=== PATIENT | female | born 1980 | race Two or more races ===

== ENCOUNTER 2023-08-14 13:00 | Observation (INO) | payer OTHER ==
[2023-08-14] MEDS ORDERED: FAMOTIDINE 20 MG/50 ML IVPB 20 MG/50 ML MG IVPB ONE (14:50)
[2023-08-14] MEDS ORDERED: MAG HYDROX/AL HYDROX/SIMETH 30 ML UNIT-DOSE CUP ONE (14:50)
[2023-08-14] MEDS ORDERED: ONDANSETRON 4 MG/2 ML VIAL ONE (14:50)
[2023-08-14] MEDS: FAMOTIDINE 20 MG/50 ML IVPB 20 MG/50 ML MG IVPB ONE (14:53)
[2023-08-14] MEDS: ONDANSETRON 4 MG/2 ML VIAL IVPUSH ONE (14:53)
[2023-08-14] MEDS: MAG HYDROX/AL HYDROX/SIMETH 30 ML UNIT-DOSE CUP PO ONE (14:53)
[2023-08-14 14:55] LABS: BASO % 0.9 % (0-2.0); EOS % 1.7 % (0-4.5); HEMATOCRIT 27.5 % (32.4-45.2); HEMOGLOBIN 8.3 GM/dL (10.7-15.3); LYMPH % 22.3 % (8-40); MCH 18.6 pg (25.7-33.7); MCHC 30.1 g/dl (32.0-36.0); MEAN CELL VOLUME 61.6 fl (80-96); MEAN PLT VOLUME 8.1 fl (7.5-11.1); MONO % 7.8 % (3.8-10.2); NEUT % 67.3 % (42.8-82.8); PLATELET COUNT 448 10^3/uL (134-434); RBC 4.46 M/mm3 (3.60-5.2); RDW 21.7 % (11.6-15.6); WHITE BLOOD COUNT 9.4 K/mm3 (4.0-10.0)
[2023-08-14 15:20] LABS: BLOOD UREA NITROGEN 22.8 mg/dL (7-18)
[2023-08-14 15:22] LABS: ALBUMIN 3.4 g/dl (3.4-5.0); CALCIUM 9.3 mg/dL (8.5-10.1)
[2023-08-14 15:24] LABS: CREATININE 2.1 mg/dL (0.55-1.3)
[2023-08-14 15:27] LABS: BILIRUBIN,TOTAL 0.3 mg/dL (0.2-1); TOT PROT 8.4 g/dl (6.4-8.2)
[2023-08-14 17:00] LABS: ANISOCYTOSIS 2+; MACROCYTOSIS 1+; OVALOCYTE 1+
[2023-08-14] MEDS ORDERED: MAG HYDROX/AL HYDROX/SIMETH 30 ML UNIT-DOSE CUP PO PRN (18:17)
[2023-08-14] MEDS: LACTATED RINGERS SOLUTION 1,000 ML/1,000 ML INFUS.BAG IV SCH (18:49)
[2023-08-14] MEDS: LABETALOL HCL 200 MG TABLET (FP) PO SCH (23:03)
[2023-08-14] MEDS: ATORVASTATIN CA 40 MG TABLET (FP) PO SCH (23:04)
[2023-08-14] MEDS: HEPARIN NA (PORCINE) 5,000 UNITS/ML 1ML VIAL SQ SCH (23:04)
[2023-08-14] MEDS: MIRTAZAPINE 15 MG TABLET (FP) PO SCH (23:04)
[2023-08-14 23:38] VITALS: BMI 39.8
[2023-08-15] MEDS: AMOXICILLIN 500 MG CAPSULE (FP) PO SCH (01:43)
[2023-08-15] MEDS: INSULIN ASPART SLIDING SCALE (NOVOLOG) 1 VIAL SQ SCH (06:23)
[2023-08-15 07:45] LABS: BASO % 1.2 % (0-2.0); EOS % 1.9 % (0-4.5); HEMATOCRIT 25.9 % (32.4-45.2); HEMOGLOBIN 7.7 GM/dL (10.7-15.3); LYMPH % 29.8 % (8-40); MCHC 29.9 g/dl (32.0-36.0); MEAN CELL VOLUME 62.7 fl (80-96); MEAN PLT VOLUME 8.2 fl (7.5-11.1); MONO % 7.7 % (3.8-10.2); NEUT % 59.4 % (42.8-82.8); PLATELET COUNT 408 10^3/uL (134-434); RBC 4.13 M/mm3 (3.60-5.2); RDW 21.3 % (11.6-15.6); WHITE BLOOD COUNT 9.6 K/mm3 (4.0-10.0)
[2023-08-15 07:47] LABS: MCH 18.8 pg (25.7-33.7)
[2023-08-15 08:06] LABS: POTASSIUM 4.3 mmol/L (3.5-5.1)
[2023-08-15 08:09] LABS: BLOOD UREA NITROGEN 23.6 mg/dL (7-18); CALCIUM 9.2 mg/dL (8.5-10.1)
[2023-08-15 08:13] LABS: CREATININE 1.9 mg/dL (0.55-1.3)
[2023-08-15] MEDS: FERROUS GLUCONATE 324 MG TAB (FP) PO SCH (10:32)
[2023-08-15] MEDS: FAMOTIDINE 20 MG TABLET PO SCH (10:32)
[2023-08-15] MEDS: DOCUSATE SODIUM 100 MG CAPSULE (FP) PO SCH (10:32)
[2023-08-15] MEDS: amLODIPine BESYLATE 10 MG TABLET (FP) PO SCH (10:32)
[2023-08-15] MEDS: DEXTROSE 5%-0.45% SALINE 1,000 ML IV SCH (11:26)
[2023-08-15 13:43] LABS: PH,URINE 5.5 (5.0-8.0); URINE APPEARANCE Clear; URINE BILIRUBIN Negative (NEGATIVE); URINE COLOR Yellow; URINE GLUCOSE (UA) Negative (NEGATIVE); URINE KETONE Negative (NEGATIVE); URINE LEUK ESTERASE Negative (NEGATIVE); URINE NITRITE Negative (NEGATIVE); URINE PROTEIN Negative (NEGATIVE); URINE UROBILINOGEN 0.2 mg/dL (0.2-1.0)
[2023-08-15 13:49] LABS: EPI CELLS 43 /uL (0-25.1); HYALINE CASTS 0 /uL (0-3.1); URINE BACTERIA 299 /uL (0-1359); URINE RBC 17 /uL (0-23.9); URINE WBC 9 /uL (0-25.8)
[2023-08-15] MEDS: SODIUM CHLORIDE 0.45% 1,000 ML IV SCH (14:49)
[2023-08-16 08:20] LABS: EOS % 2.6 % (0-4.5); HEMOGLOBIN 7.8 GM/dL (10.7-15.3); MCHC 29.8 g/dl (32.0-36.0); MEAN CELL VOLUME 62.8 fl (80-96); MEAN PLT VOLUME 8.6 fl (7.5-11.1); MONO % 8.8 % (3.8-10.2); NEUT % 58.6 % (42.8-82.8); PLATELET COUNT 410 10^3/uL (134-434); RBC 4.14 M/mm3 (3.60-5.2); RDW 21.8 % (11.6-15.6)
[2023-08-16 08:26] LABS: MCH 18.7 pg (25.7-33.7)
[2023-08-16 08:29] LABS: POTASSIUM 3.8 mmol/L (3.5-5.1)
[2023-08-16 08:39] LABS: BLOOD UREA NITROGEN 21.6 mg/dL (7-18); CALCIUM 8.7 mg/dL (8.5-10.1)
[2023-08-16 08:41] LABS: CREATININE 1.7 mg/dL (0.55-1.3)
[2023-08-16 08:43] LABS: TOT PROT 7.8 g/dl (6.4-8.2)
[2023-08-16 09:11] LABS: BILIRUBIN,TOTAL 0.3 mg/dL (0.2-1)
[2023-08-17] MEDS ORDERED: INSULIN ASPART SLIDING SCALE (NOVOLOG) 1 VIAL SQ ONE (07:25)
[2023-08-18 06:39] LABS: EOS % 2.7 % (0-4.5); HEMATOCRIT 26.1 % (32.4-45.2); HEMOGLOBIN 7.9 GM/dL (10.7-15.3); LYMPH % 27.7 % (8-40); MCHC 30.4 g/dl (32.0-36.0); MEAN CELL VOLUME 62.8 fl (80-96); MEAN PLT VOLUME 7.9 fl (7.5-11.1); MONO % 8.2 % (3.8-10.2); NEUT % 60.4 % (42.8-82.8); PLATELET COUNT 430 10^3/uL (134-434); RBC 4.16 M/mm3 (3.60-5.2); RDW 22.2 % (11.6-15.6); WHITE BLOOD COUNT 8.7 K/mm3 (4.0-10.0)
[2023-08-18 06:57] LABS: MCH 19.1 pg (25.7-33.7)
[2023-08-18 06:59] VITALS: RESP 18
[2023-08-18 07:29] LABS: BLOOD UREA NITROGEN 18.4 mg/dL (7-18); CALCIUM 8.5 mg/dL (8.5-10.1)
[2023-08-18 07:30] LABS: ALBUMIN 3.2 g/dl (3.4-5.0)
[2023-08-18 07:32] LABS: CREATININE 1.7 mg/dL (0.55-1.3)
[2023-08-18 07:34] LABS: BILIRUBIN,TOTAL 0.4 mg/dL (0.2-1)
[2023-08-18 09:22] LABS: ANISOCYTOSIS 2+; MACROCYTOSIS 0
[2023-08-18 09:25] VITALS: PULSE 81; TEMP 98.2
[2023-08-18 14:36] VITALS: BP 150/90
== END 2023-08-18 15:14 | disposition home or self-care (01) ==
LOC: JER 13:00 → INTOOBSV 17:50 → UNDOADMOB 17:50 → JERBED 17:50 → J7W 21:55
PROVIDERS: ADMIT Internal Medicine; ATTEND Internal Medicine
PROC: 3E033GC Introduction of Other Therapeutic Substance into Peripheral Vein, Percutaneous Approach (ICD-10-PCS; principal; 2023-08-14)
PROC: 3E013VG Introduction of Insulin into Subcutaneous Tissue, Percutaneous Approach (ICD-10-PCS; 2023-08-14)
PROC: 3E0337Z Introduction of Electrolytic and Water Balance Substance into Peripheral Vein, Percutaneous Approach (ICD-10-PCS; 2023-08-14)
DX: N17.9 Acute kidney failure, unspecified (principal); D64.9 Anemia, unspecified; R10.13 Epigastric pain; I10 Essential (primary) hypertension; E78.5 Hyperlipidemia, unspecified; E11.9 Type 2 diabetes mellitus without complications; Z87.09 Personal history of other diseases of the respiratory system
CPT/HCPCS: 36415; 71045-TC-FY; 74176-TC; 76775-TC; 80048; 80053; 81003; 82570; 82962; 83690; 84156; 84439; 84443; 84484; 85025; 87338; 87651; 93005; 93010; 99285-25; G0378; J1644